=== PATIENT | female | born 1970 | race Caucasian/White ===

== ENCOUNTER 2019-05-29 09:43 | Outpatient (CLI) | payer OTHER | END 2019-05-29 23:59 | disposition home or self-care (01) | LOC: CARD 09:43 | PROVIDERS: ATTEND Internal Medicine | DX: M47.819 Spondylosis without myelopathy or radiculopathy, site unspecified (principal); G99.0 Autonomic neuropathy in diseases classified elsewhere; R20.0 Anesthesia of skin | CPT/HCPCS: 95886; 95907 ==